=== PATIENT | female | born 1945 ===

== ENCOUNTER 2023-10-30 16:23 | Inpatient (IN) | payer MEDICARE, OTHER ==
[~2023-10-30] VITALS: Ht 170.2 cm; Wt 62.1 kg
[2023-10-30] MEDS ORDERED: APIX5TAB PO (17:03)
[2023-10-30] MEDS ORDERED: CEPH500T PO (17:03)
[2023-10-30] MEDS ORDERED: EMTR1TAB13 PO (17:03)
[2023-10-30] MEDS ORDERED: FURO40TA5 PO (17:05)
[2023-10-30] MEDS ORDERED: DOCU100C36 PO (17:05)
[2023-10-30] MEDS ORDERED: FERR324T17 PO (17:05)
[2023-10-30] MEDS ORDERED: PALI117D IM (17:07)
[2023-10-30] MEDS ORDERED: MULT-594 PO (17:07)
[2023-10-30] MEDS ORDERED: LEVO100T10 PO (17:07)
[2023-10-30] MEDS ORDERED: SENN1TAB99 PO (17:09)
[2023-10-30] MEDS ORDERED: COLL30OI TOP (17:09)
[2023-10-30] MEDS ORDERED: ROSU5TAB13 PO (17:09)
[2023-10-30] MEDS ORDERED: DOLU50TA PO (17:11)
[2023-10-30] MEDS ORDERED: ERGO500014 PO (17:11)
[2023-10-30] MEDS ORDERED: CHOL2000 PO (17:11)
[2023-10-30] MEDS ORDERED: MAG-164 PO (17:14)
[2023-10-30] MEDS ORDERED: LOPE2TAB25 PO (17:14)
[2023-10-30] MEDS ORDERED: ACET325T53 PO (17:14)
[2023-10-30] MEDS ORDERED: POLY8.5P PO (17:18)
[2023-10-30] MEDS ORDERED: BISM262O28 PO (17:18)
[2023-10-30] MEDS ORDERED: SIME125T62 PO (17:18)
[2023-10-30] MEDS ORDERED: ALBU18HF2 PO (17:19)
[2023-10-30] MEDS ORDERED: TRAM50TA2 PO (17:19)
[2023-10-30 18:28] LABS: CARBON DIOXIDE 30 mmol/L (21-32); CHLORIDE 106 mmol/L (98-107); CREATININE 2.1 mg/dL (0.6-1.3); GLUCOSE 122 mg/dL (74-106); POTASSIUM 3.7 mmol/L (3.5-5.1); SODIUM SERUM 145 mmol/L (136-145); UREA NITROGEN, BLOOD 34 mg/dL (7-18)
[2023-10-30 18:30] LABS: BASOPHILS % (AUTO) 0.2 % (0.0-2.0); DIFFERENTIAL COMMENT 0; EOSINOPHILS # (AUTO) 0.1 K/uL (0.0-0.7); EOSINOPHILS % (AUTO) 0.8 % (0.0-7.0); HEMATOCRIT 27.6 % (31.2-41.9); HEMOGLOBIN 9.2 g/dL (10.9-14.3); LYMPHOCYTES % (AUTO) 9.8 % (20.5-51.5); MEAN CORPUSCULAR HEMOGLOBIN 29.8 uug (24.7-32.8); MEAN CORPUSCULAR HGB CONC 34 g/dL (32.3-35.6); MEAN CORPUSCULAR VOLUME 88.9 fL (75.5-95.3); MONOCYTES # (AUTO) 0.5 K/uL (0.1-1.30); MONOCYTES % (AUTO) 4.5 % (0.0-11.0); NEUTROPHILS # (AUTO) 8.6 K/uL (1.8-8.9); NEUTROPHILS % (AUTO) 84.7 % (38.5-71.5); PLATELET COUNT (AUTO) 287 K/uL (179-408); RED CELL DISTRIBUTION WIDTH 16.2 % (12.3-17.7); WHITE BLOOD COUNT (AUTO) 10.1 K/uL (3.8-11.8)
[2023-10-30 18:40] LABS: ALANINE AMINOTRANSFERASE 11 U/L (14-59); ALBUMIN 2.2 g/dL (3.4-5.0); ALKALINE PHOSPHATASE 72 U/L (50-136); ASPARTATE AMINOTRANSFERASE 7 U/L (15-37); BILIRUBIN,DIRECT 0.1 mg/dL (0.0-0.2); BILIRUBIN,TOTAL 0.2 mg/dL (0.2-1.0); NT-PRO BNP 1347 pg/mL (0-125)
[2023-10-30 18:58] LABS: CALCIUM 8.3 mg/dL (8.5-10.1)
[2023-10-30] MEDS ORDERED: CEFTRIAXONE /D5W 50ML IVPB **ER PYXIS IV ONE (19:07)
[2023-10-30] MEDS: IV NS 1000 ML 1,000 ML IV ONE (19:16)
[2023-10-30] MEDS: CEFTRIAXONE 1 G in IV DEXTROSE 5% 50 ML IV ONE (19:16)
[2023-10-30 22:30] VITALS: BP 97/55; TEMP 98; O2SAT 96
[2023-10-30] MEDS ORDERED: ONDANSETRON 4 MG/2 ML VIAL IV PRN (23:15)
[2023-10-30] MEDS ORDERED: ACETAMINOPHEN 325 MG TABLET PO PRN (23:15)
[2023-10-30] MEDS ORDERED: REMEDY ESSENTIAL ZINC PASTE 113 GM TP PRN (23:15)
[2023-10-30] MEDS ORDERED: MAGNESIUM HYDROXIDE 30 ML LIQUID UDC PO PRN (23:15)
[2023-10-30] MEDS ORDERED: ZOLPIDEM 5 MG TABLET PO PRN (23:15)
[2023-10-30] MEDS: IV 1/2NS 1000 ML 1,000 ML IV PRN (23:50)
[2023-10-31] MEDS ORDERED: VANCOMYCIN IV 200 ML ONE (01:32)
[2023-10-31] MEDS: VANCOMYCIN IV 1,000 MG in IV DEXTROSE 5% 250 ML IV ONE ×2 (02:08→20:44)
[2023-10-31] MEDS: HYDROCODONE/APAP 5-325MG TABLET PO PRN (03:32)
[2023-10-31 06:00] VITALS: BP 90/52; TEMP 98.3; O2SAT 95
[2023-10-31 06:13] LABS: *BILIRUBIN,URIN NEGATIVE (NEGATIVE); *BLOOD, URINE 1+ (NEGATIVE); *CLARITY,URINE CLEAR (CLEAR); *COLOR,URINE YELLOW (YELLOW); *KETONES,URINE NEGATIVE (NEGATIVE); *PROTEIN,URINE 1+ (NEGATIVE); *UROBILINOGEN,URINE 0.2 E.U./dl (NORMAL); LEUKOCYTE ESTERASE ,URINE 3+ (NEGATIVE); NITRITE, URINE NEGATIVE (NEGATIVE); UGLUCOSE NEGATIVE (NEGATIVE)
[2023-10-31] MEDS: PANTOPRAZOLE SODIUM 40 MG TABLET.DR PO SCH (06:28)
[2023-10-31 07:22] LABS: BACTERIA,URINE FEW /HPF (NONE SEEN); SQUAMOUS EPITHELIAL CELL,UR FEW /HPF (NONE SEEN); WBC,URINE 80-100 /HPF (0-3)
[2023-10-31 07:43] LABS: BASOPHILS % (AUTO) 0.2 % (0.0-2.0); EOSINOPHILS # (AUTO) 0.1 K/uL (0.0-0.7); EOSINOPHILS % (AUTO) 1.1 % (0.0-7.0); HEMATOCRIT 23.8 % (31.2-41.9); HEMOGLOBIN 8.1 g/dL (10.9-14.3); LYMPHOCYTES # (AUTO) 0.9 K/uL (0.8-4.8); LYMPHOCYTES % (AUTO) 12.1 % (20.5-51.5); MEAN CORPUSCULAR HEMOGLOBIN 30.7 uug (24.7-32.8); MEAN CORPUSCULAR HGB CONC 34 g/dL (32.3-35.6); MEAN CORPUSCULAR VOLUME 90.1 fL (75.5-95.3); MONOCYTES # (AUTO) 0.5 K/uL (0.1-1.30); MONOCYTES % (AUTO) 5.8 % (0.0-11.0); NEUTROPHILS # (AUTO) 6.4 K/uL (1.8-8.9); NEUTROPHILS % (AUTO) 80.8 % (38.5-71.5); PLATELET COUNT (AUTO) 247 K/uL (179-408); RED BLOOD CELL COUNT(AUTO) 2.65 MIL/uL (3.63-4.92); RED CELL DISTRIBUTION WIDTH 15.9 % (12.3-17.7); WHITE BLOOD COUNT (AUTO) 7.9 K/uL (3.8-11.8)
[2023-10-31 07:54] LABS: DIFFERENTIAL COMMENT 1
[2023-10-31 08:20] LABS: CALCIUM 7.7 mg/dL (8.5-10.1); CARBON DIOXIDE 28 mmol/L (21-32); CHLORIDE 110 mmol/L (98-107); CHOLESTEROL 149 mg/dL (<200); GLUCOSE 83 mg/dL (74-106); HDL CHOLESTEROL 48 mg/dL (40-60); MAGNESIUM 1.8 mg/dL (1.8-2.4); POTASSIUM 3.6 mmol/L (3.5-5.1); SODIUM SERUM 143 mmol/L (136-145); TRIGLYCERIDES 68 MG/DL (30-150); UREA NITROGEN, BLOOD 32 mg/dL (7-18)
[2023-10-31 08:24] LABS: THYROID STIMULATING HORMONE 3.407 mIU/mL (0.358-3.740)
[2023-10-31] MEDS ORDERED: ENOXAPARIN SODIUM 30 MG/0.3 ML DISP.SYRIN SQ SCH (09:00)
[2023-10-31 11:32] VITALS: BP 98/50; TEMP 98.5; O2SAT 100
[2023-10-31 15:10] VITALS: BP 94/53; TEMP 97.6; O2SAT 94
[2023-10-31 15:36] LABS: *BILIRUBIN,URIN NEGATIVE (NEGATIVE); *CLARITY,URINE SLIGHTLY CLOUDY (CLEAR); *COLOR,URINE YELLOW (YELLOW); *KETONES,URINE NEGATIVE (NEGATIVE); *PROTEIN,URINE TRACE (NEGATIVE); *UROBILINOGEN,URINE 0.2 E.U./dl (NORMAL); LEUKOCYTE ESTERASE ,URINE 3+ (NEGATIVE); NITRITE, URINE NEGATIVE (NEGATIVE); PH,URINE 6.5 (5.0-8.0); UGLUCOSE NEGATIVE (NEGATIVE)
[2023-10-31 15:37] LABS: *BLOOD, URINE TRACE (NEGATIVE)
[2023-10-31 15:43] LABS: *CREATININE,URINE 25.1 mg/dL (30-125); *URINE TOTAL PROTEIN RANDOM 41.3 mg/dL (<150/24HR)
[2023-10-31 15:46] LABS: RBC,URINE 0-3 /HPF (0-3)
[2023-10-31 15:47] LABS: BACTERIA,URINE FEW /HPF (NONE SEEN); SQUAMOUS EPITHELIAL CELL,UR FEW /HPF (NONE SEEN); WBC,URINE 20-50 /HPF (0-3)
[2023-10-31] MEDS: CEFTRIAXONE 1 G in IV DEXTROSE 5% 50 ML IV SCH (17:03)
[2023-10-31 20:00] VITALS: BP 99/56; TEMP 98.3; O2SAT 98
[2023-10-31] MEDS: ENOXAPARIN SODIUM 30 MG/0.3 ML DISP.SYRIN SQ SCH (20:46)
[2023-11-01 06:00] VITALS: BP 109/55; TEMP 99.1; O2SAT 96
[2023-11-01 08:11] LABS: BASOPHILS % (AUTO) 0.4 % (0.0-2.0); EOSINOPHILS # (AUTO) 0.2 K/uL (0.0-0.7); EOSINOPHILS % (AUTO) 1.9 % (0.0-7.0); HEMATOCRIT 24.9 % (31.2-41.9); HEMOGLOBIN 8.5 g/dL (10.9-14.3); LYMPHOCYTES # (AUTO) 1.3 K/uL (0.8-4.8); LYMPHOCYTES % (AUTO) 16.1 % (20.5-51.5); MEAN CORPUSCULAR HEMOGLOBIN 30.7 uug (24.7-32.8); MEAN CORPUSCULAR HGB CONC 34 g/dL (32.3-35.6); MEAN CORPUSCULAR VOLUME 90.4 fL (75.5-95.3); MONOCYTES # (AUTO) 0.5 K/uL (0.1-1.30); MONOCYTES % (AUTO) 6.3 % (0.0-11.0); NEUTROPHILS # (AUTO) 5.9 K/uL (1.8-8.9); NEUTROPHILS % (AUTO) 75.3 % (38.5-71.5); PLATELET COUNT (AUTO) 265 K/uL (179-408); RED BLOOD CELL COUNT(AUTO) 2.75 MIL/uL (3.63-4.92); RED CELL DISTRIBUTION WIDTH 15.8 % (12.3-17.7); WHITE BLOOD COUNT (AUTO) 7.9 K/uL (3.8-11.8)
[2023-11-01 08:28] LABS: DIFFERENTIAL COMMENT 1
[2023-11-01 08:47] LABS: ALANINE AMINOTRANSFERASE 7 U/L (14-59); ALBUMIN 1.8 g/dL (3.4-5.0); ALKALINE PHOSPHATASE 57 U/L (50-136); ASPARTATE AMINOTRANSFERASE < 5 U/L (15-37); BILIRUBIN,TOTAL 0.2 mg/dL (0.2-1.0); CARBON DIOXIDE 26 mmol/L (21-32); CHLORIDE 113 mmol/L (98-107); CREATININE 2.3 mg/dL (0.6-1.3); GLUCOSE 78 mg/dL (74-106); MAGNESIUM 1.9 mg/dL (1.8-2.4); PHOSPHOROUS 3.2 mg/dL (2.5-4.9); POTASSIUM 4.3 mmol/L (3.5-5.1); SODIUM SERUM 145 mmol/L (136-145); TOTAL PROTEIN, SERUM 5.9 g/dL (6.4-8.2); UREA NITROGEN, BLOOD 30 mg/dL (7-18)
[2023-11-01 08:59] LABS: CALCIUM 7.6 mg/dL (8.5-10.1)
[2023-11-01 09:17] LABS: CREATINE KINASE, TOTAL 66 U/L (26-192)
[2023-11-01 12:00] VITALS: BP 115/62; TEMP 98.2; O2SAT 96
[2023-11-01 16:26] VITALS: BP 122/64; TEMP 98; O2SAT 95
[2023-11-01 21:25] VITALS: BP 140/60; TEMP 98.2; O2SAT 100
[2023-11-02 08:00] VITALS: BP 127/61; TEMP 98; O2SAT 98
[2023-11-02 08:31] LABS: CARBON DIOXIDE 27 mmol/L (21-32); CHLORIDE 109 mmol/L (98-107); GLUCOSE 87 mg/dL (74-106); POTASSIUM 4.1 mmol/L (3.5-5.1); SODIUM SERUM 141 mmol/L (136-145); UREA NITROGEN, BLOOD 28 mg/dL (7-18); VANCOMYCIN,RANDOM 18.6 ug/mL (20.0-30.0)
[2023-11-02 12:00] VITALS: BP 130/75; TEMP 97.7; O2SAT 98
[2023-11-02 15:29] VITALS: BP 146/92; TEMP 97.5; O2SAT 95
[2023-11-02] MEDS ORDERED: VANCOMYCIN IV 1,000 MG in IV DEXTROSE 5% 250 ML IV ONE (20:00)
[2023-11-04 07:11] LABS: A/G RATIO 0.6 (0.7-1.7); ALPHA-1-GLOBULIN 0.3 g/dL (0.0-0.4); ALPHA-2-GLOBULIN 0.8 g/dL (0.4-1.0); BETA GLOBULIN 0.9 g/dL (0.7-1.3); GAMMA GLOBULIN 1.2 g/dL (0.4-1.8); GLOBULIN, TOTAL 3.2 g/dL (2.2-3.9); M-SPIKE Not Observed g/dL (Not Observed)
[2023-11-05 01:05] LABS: PTH, INTACT 37 pg/mL (15-65)
== END 2023-11-02 18:50 | DRG 602 ==
LOC: ER 16:25 → MEDSURG3 21:19
DX: L03.115 Cellulitis of right lower limb (principal); L89.893 Pressure ulcer of other site, stage 3; N39.0 Urinary tract infection, site not specified; I13.0 Hypertensive heart and chronic kidney disease with heart failure and stage 1 through stage 4 chronic kidney disease, or unspecified chronic kidney disease; I50.32 Chronic diastolic (congestive) heart failure; N18.30 Chronic kidney disease, stage 3 unspecified; L89.610 Pressure ulcer of right heel, unstageable; Z96.652 Presence of left artificial knee joint; Z99.3 Dependence on wheelchair; E03.9 Hypothyroidism, unspecified; E78.5 Hyperlipidemia, unspecified
CPT/HCPCS: 36415; 71045; 83605; 83735; 83970; 84100; 84155; 84165; 84300; 84443; 85025; 87040; A6213; G0378; J0696; J1650; J3370; J7040; J7050